=== PATIENT | female | born 1945 | race Caucasian/White ===

== ENCOUNTER 2017-02-17 08:02 | Emergency (ER) | payer MEDICARE, BC ==
[2017-02-17 09:21] LABS: HEMOGLOBIN 14.6 gm/dl (12.3-15.3); RED BLOOD COUNT 4.98 M/UL (4.00-5.10); WHITE BLOOD COUNT 14.6 K/UL (4.5-11.0)
[2017-02-17 09:41] LABS: BUN/CREATININE RATIO 20 (0-10)
== END 2017-02-17 10:56 | disposition home or self-care (01) ==
LOC: ER1 08:02
PROVIDERS: Emergency Medicine
DX: J44.1 Chronic obstructive pulmonary disease with (acute) exacerbation (principal); J20.9 Acute bronchitis, unspecified; J44.0 Chronic obstructive pulmonary disease with (acute) lower respiratory infection; E78.00 Pure hypercholesterolemia, unspecified; E11.9 Type 2 diabetes mellitus without complications; I10 Essential (primary) hypertension; F17.210 Nicotine dependence, cigarettes, uncomplicated; Z90.710 Acquired absence of both cervix and uterus
CPT/HCPCS: 36415; 71010; 80053; 82550; 82553; 83874; 83880; 84484; 85025; 93005; 94640; 94664; 96365; 96375; 99285; J0696; J2930; J7050

== ENCOUNTER 2021-01-08 10:01 | Emergency (ER) | payer MEDICARE, BC ==
[~2021-01-08 10:01] MED LIST: AMOXICILLIN500 MG PO; AZITHROMYCIN250 MG PO; BACTROBAN OINT22 GM EXT; COREG 25MG TAB25 MG PO; GLUCOPHAGE500 MG PO; GLUCOTROL XL 5 M5 MG PO; IPRAT-ALBUT 0.5-3 ML INH; JANUVIA100 MG PO; LANTUS100 UNIT/1 SQ; LOPRESSOR 25 MG25 MG PO; LOSARTAN-HCTZ1 EACH PO; MEDROL4 MG PO; NAPROSYN EC 37375 MG PO; NORVASC 5 MG TAB5 MG PO; OMNICEF 300 MG300 MG PO; PAXIL20 MG PO; PRAVACHOL80 MG PO; PREDNISONE10 MG PO
[2021-01-08] MEDS ORDERED: CYCLOBENZAPRINE5 MG PO (15:20)
[2021-01-08] MEDS ORDERED: MOBIC15 MG PO (15:20)
[2021-01-08] MEDS ORDERED: HYDROCODON-ACE1 EAC4 PO (15:29)
[2021-01-09] MEDS ORDERED: Voltaren Gel 1 % TOP (17:56)
== END 2021-01-08 15:51 | disposition home or self-care (01) ==
LOC: ER1 10:01
DX: M54.12 Radiculopathy, cervical region (principal); M47.892 Other spondylosis, cervical region; J44.9 Chronic obstructive pulmonary disease, unspecified; I10 Essential (primary) hypertension; E11.9 Type 2 diabetes mellitus without complications; F17.200 Nicotine dependence, unspecified, uncomplicated; Z90.710 Acquired absence of both cervix and uterus
CPT/HCPCS: 72125; 73060; 93005; 99284

== ENCOUNTER 2021-01-09 14:19 | Emergency (ER) | payer MEDICARE, BC ==
[~2021-01-09 14:19] MED LIST changes: +CYCLOBENZAPRINE5 MG PO; +HYDROCODON-ACE1 EAC4 PO; +MOBIC15 MG PO
[2021-01-09 16:16] LABS: HEMOGLOBIN 15.5 gm/dl (12.3-15.3); RED BLOOD COUNT 5.38 M/UL (4.00-5.10); WHITE BLOOD COUNT 11.1 K/UL (4.5-11.0)
[2021-01-09 16:39] LABS: BUN/CREATININE RATIO 24 (0-10)
[2021-01-09] MEDS ORDERED: Voltaren Gel 1 % TOP (17:56)
== END 2021-01-09 18:41 | disposition home or self-care (01) ==
LOC: ER1 14:19
PROVIDERS: Physician Assistant Medical
DX: R07.89 Other chest pain (principal); S46.912A Strain of unspecified muscle, fascia and tendon at shoulder and upper arm level, left arm, initial encounter; E11.9 Type 2 diabetes mellitus without complications; I10 Essential (primary) hypertension; F17.210 Nicotine dependence, cigarettes, uncomplicated; Z90.710 Acquired absence of both cervix and uterus; X58.XXXA Exposure to other specified factors, initial encounter
CPT/HCPCS: 36415; 80053; 84484; 85025; 93005; 99285; Q9967

== ENCOUNTER 2021-02-20 10:54 | Emergency (ER) | payer MEDICARE, BC ==
[~2021-02-20 10:54] MED LIST changes: +Voltaren Gel 1 % TOP
[2021-02-20] MEDS ORDERED: MIRALAX 119 GR119 GM GT (14:44)
== END 2021-02-20 15:04 | disposition home or self-care (01) ==
LOC: ER1 10:54
DX: K59.00 Constipation, unspecified (principal); E11.9 Type 2 diabetes mellitus without complications; I10 Essential (primary) hypertension; E78.5 Hyperlipidemia, unspecified; Z90.710 Acquired absence of both cervix and uterus; Z79.899 Other long term (current) drug therapy
CPT/HCPCS: 74018; 99283

== ENCOUNTER 2021-11-17 14:15 | Emergency (ER) | payer MEDICARE, BC ==
[~2021-11-17 14:15] MED LIST changes: +MIRALAX 119 GR119 GM GT
== END 2021-11-17 16:49 | disposition home or self-care (01) ==
LOC: ER1 14:15
DX: S31.139A Puncture wound of abdominal wall without foreign body, unspecified quadrant without penetration into peritoneal cavity, initial encounter (principal); J44.9 Chronic obstructive pulmonary disease, unspecified; Z90.710 Acquired absence of both cervix and uterus; E11.9 Type 2 diabetes mellitus without complications; F17.210 Nicotine dependence, cigarettes, uncomplicated; W26.8XXA Contact with other sharp object(s), not elsewhere classified, initial encounter
CPT/HCPCS: 74018; 74019; 99284